=== PATIENT | female | born 2005 | race Caucasian/White ===

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

== ENCOUNTER 2024-05-08 17:00 | Emergency (ER) | payer SELFPAY ==
[2024-05-08 17:30] VITALS: BP 123/70; PULSE 85; RESP 20; TEMP 98.6; BMI 52.2
[2024-05-08] MEDS ORDERED: DEXAMETHASONE SOD PHOSPHATE 10 MG/1 ML VIAL ONE (18:46)
[2024-05-08] MEDS ORDERED: ALBUTEROL SO4 2.5/IPRATROPIUM 0.5 INH SOL 3 ML VIAL.NEB. NEB ONE (18:46)
[2024-05-08] MEDS: ALBUTEROL SO4 2.5/IPRATROPIUM 0.5 INH SOL 3 ML VIAL.NEB. NEB ONE (19:04)
[2024-05-08] MEDS: DEXAMETHASONE SOD PHOSPHATE 10 MG/1 ML VIAL IM ONE (19:04)
== END 2024-05-08 20:18 | disposition home or self-care (01) ==
LOC: JER 17:00
PROC: 3E023GC Introduction of Other Therapeutic Substance into Muscle, Percutaneous Approach (ICD-10-PCS; principal; 2024-05-08)
PROC: 3E0F7GC Introduction of Other Therapeutic Substance into Respiratory Tract, Via Natural or Artificial Opening (ICD-10-PCS; 2024-05-08)
DX: R05.9 Cough, unspecified (principal); R07.89 Other chest pain; R06.02 Shortness of breath; R06.2 Wheezing; J06.9 Acute upper respiratory infection, unspecified; Z20.822 Contact with and (suspected) exposure to COVID-19
CPT/HCPCS: 0241U-QW; 71046-TC-FY; 93005; 93010; 99285-25; J1100

== ENCOUNTER 2024-06-12 09:13 | Emergency (ER) | payer SELFPAY ==
[2024-06-12 09:38] VITALS: BP 119/76; RESP 20; TEMP 98.1; BMI 48.2
[2024-06-12] MEDS ORDERED: ALBUTEROL SO4 2.5/IPRATROPIUM 0.5 INH SOL 3 ML VIAL.NEB. NEB ONE (10:12)
[2024-06-12] MEDS ORDERED: predniSONE 20 MG TABLET (UD) ONE (10:13)
[2024-06-12] MEDS: predniSONE 20 MG TABLET (UD) PO ONE (10:15)
[2024-06-12] MEDS: ALBUTEROL SO4 2.5/IPRATROPIUM 0.5 INH SOL 3 ML VIAL.NEB. NEB ONE (10:50)
[2024-06-12 11:36] VITALS: PULSE 79
[2024-06-12 12:15] LABS: HIV INTERPRETATION NEGATIVE (NEGATIVE)
== END 2024-06-12 12:25 | disposition home or self-care (01) ==
LOC: JER 09:13
PROC: 3E0F7GC Introduction of Other Therapeutic Substance into Respiratory Tract, Via Natural or Artificial Opening (ICD-10-PCS; principal; 2024-06-12)
DX: J45.40 Moderate persistent asthma, uncomplicated (principal); R06.02 Shortness of breath; R07.89 Other chest pain; R05.9 Cough, unspecified; J02.9 Acute pharyngitis, unspecified
CPT/HCPCS: 36415; 71046-TC-FY; 86803; 87389; 93005; 93010; 99285-25

== ENCOUNTER 2024-11-07 12:12 | Emergency (ER) | payer OTHER ==
[2024-11-07 12:20] VITALS: BP 122/89; PULSE 99; RESP 18; TEMP 98.6; BMI 42.5
[2024-11-07] MEDS ORDERED: ACETAMINOPHEN 500 MG TABLET (FP) ONE (12:51)
[2024-11-07] MEDS ORDERED: DEXAMETHASONE SOD PHOSPHATE 10 MG/1 ML VIAL ONE (12:51)
[2024-11-07] MEDS ORDERED: ALBUTEROL SO4 2.5/IPRATROPIUM 0.5 INH SOL 3 ML VIAL.NEB. NEB ONE (12:51)
[2024-11-07] MEDS: DEXAMETHASONE SOD PHOSPHATE 10 MG/1 ML VIAL PO ONE (13:06)
[2024-11-07] MEDS: ACETAMINOPHEN 500 MG TABLET (FP) PO ONE (13:06)
[2024-11-07] MEDS: ALBUTEROL SO4 2.5/IPRATROPIUM 0.5 INH SOL 3 ML VIAL.NEB. NEB ONE (13:06)
[2024-11-07 13:54] LABS: THROAT:GRP A STREP DETECTED (NOTDETECTED)
== END 2024-11-07 14:12 | disposition home or self-care (01) ==
LOC: JERFT 12:12
PROC: 3E0F7GC Introduction of Other Therapeutic Substance into Respiratory Tract, Via Natural or Artificial Opening (ICD-10-PCS; principal; 2024-11-07)
DX: J45.901 Unspecified asthma with (acute) exacerbation (principal); J02.0 Streptococcal pharyngitis; B34.9 Viral infection, unspecified; R07.89 Other chest pain; R05.9 Cough, unspecified
CPT/HCPCS: 0241U-QW; 87651; 99284-25; J1100

== ENCOUNTER 2024-12-14 10:38 | Emergency (ER) | payer OTHER ==
[2024-12-14 10:47] VITALS: BP 121/69; PULSE 92; RESP 20; TEMP 98.3; BMI 49.9
[2024-12-14] MEDS ORDERED: ONDANSETRON 4 MG/2 ML VIAL ONE (12:15)
[2024-12-14] MEDS: SODIUM CHLORIDE 0.9% 500 ML INFUS.BAG IV ONE (12:29)
[2024-12-14] MEDS: ONDANSETRON 4 MG/2 ML VIAL IVPUSH ONE (12:29)
[2024-12-14 12:51] LABS: ABSOLUTE IMMATURE GRANULOCYTES 0.03 x10^3/uL (0.0-0.031); BASOPHILS # 0.04 x10^3/uL (0.01-0.08); EOSINOPHIL % 3.8 % (0.7-5.8); EOSINOPHILS # 0.25 x10^3/uL (0.04-0.36); HEMATOCRIT 37.8 % (34.1-44.9); HEMOGLOBIN 11.5 g/dL (11.2-15.7); MCHC 30.4 g/dl (32.2-35.5); MEAN CELL VOLUME 81.1 fl (79.4-94.8); MEAN PLT VOLUME 10.8 fl (9.4-12.3); MONOCYTE # 0.41 x10^3/uL (0.24-0.86); MONOCYTE % 6.2 % (4.7-12.5); PLATELET COUNT 289 x10^3/uL (182-369); RDW 14.6 % (12.0-16.2)
[2024-12-14 12:55] LABS: EPI CELLS >36 /uL (0-25.1); HYALINE CASTS 0 /uL (0-3.1); PH,URINE 7.5 (5.0-8.0); URINE APPEARANCE CLOUDY; URINE BACTERIA 3231 /uL (0-1359); URINE BILIRUBIN NEGATIVE (NEGATIVE); URINE COLOR YELLOW; URINE GLUCOSE (UA) NEGATIVE (NEGATIVE); URINE KETONE NEGATIVE (NEGATIVE); URINE LEUK ESTERASE NEGATIVE (NEGATIVE); URINE NITRITE NEGATIVE (NEGATIVE); URINE PROTEIN NEGATIVE (NEGATIVE); URINE RBC 6 /uL (0-23.9); URINE UROBILINOGEN 0.2 mg/dL (0.2-1.0); URINE WBC 17 /uL (0-25.8)
[2024-12-14 13:11] LABS: CHLORIDE 104 mmol/L (98-107); SODIUM 124 mmol/L (136-145)
[2024-12-14 13:14] LABS: CALCIUM 8.7 mg/dL (8.5-10.1)
[2024-12-14 13:15] LABS: ALBUMIN 2.8 g/dl (3.4-5.0); BLOOD UREA NITROGEN 9.2 mg/dL (7-18); CO2 28 mmol/L (21-32); GLUCOSE,RANDOM 76 mg/dL (74-106)
[2024-12-14 13:18] LABS: CREATININE 0.6 mg/dL (0.55-1.3)
[2024-12-14 13:20] LABS: TOT PROT 8.9 g/dl (6.4-8.2)
[2024-12-14 13:26] LABS: ANION GAP -8 mmol/L (4-13); POTASSIUM > 10.0 mmol/L (3.5-5.1)
[2024-12-14 15:56] LABS: POTASSIUM 3.6 mmol/L (3.5-5.1)
[2024-12-14 15:58] LABS: ALBUMIN 3.2 g/dl (3.4-5.0); BLOOD UREA NITROGEN 8.4 mg/dL (7-18); CALCIUM 9.1 mg/dL (8.5-10.1)
[2024-12-14 16:01] LABS: CREATININE 0.6 mg/dL (0.55-1.3)
[2024-12-14 16:03] LABS: BILIRUBIN,TOTAL 0.2 mg/dL (0.2-1)
[2024-12-14 16:06] LABS: TOT PROT 6.3 g/dl (6.4-8.2)
== END 2024-12-14 18:10 | disposition home or self-care (01) ==
LOC: JER 10:38
PROC: 3E033GC Introduction of Other Therapeutic Substance into Peripheral Vein, Percutaneous Approach (ICD-10-PCS; principal; 2024-12-14)
DX: O20.9 Hemorrhage in early pregnancy, unspecified (principal); O26.891 Other specified pregnancy related conditions, first trimester; R10.30 Lower abdominal pain, unspecified; R11.0 Nausea; R10.2 Pelvic and perineal pain; Z3A.00 Weeks of gestation of pregnancy not specified
CPT/HCPCS: 36415; 76817-TC; 80053; 81003; 84702; 85025; 87086; 99285-25

== ENCOUNTER 2024-12-31 22:18 | Emergency (ER) | payer OTHER ==
[2024-12-31 22:36] VITALS: BP 123/81; PULSE 107; RESP 20; TEMP 98.8; BMI 49.9
[2024-12-31] MEDS ORDERED: AMOXICILLIN 250 MG CAPSULE ONE (23:08)
[2024-12-31] MEDS ORDERED: IBUPROFEN 600 MG TABLET (FP) PO ONE (23:08)
[2024-12-31] MEDS: AMOXICILLIN 500 MG CAPSULE (FP) PO ONE (23:11)
[2024-12-31] MEDS: IBUPROFEN 600 MG TABLET (FP) PO ONE (23:11)
== END 2024-12-31 23:00 | disposition home or self-care (01) ==
LOC: JER 22:18
DX: J02.9 Acute pharyngitis, unspecified (principal); R50.9 Fever, unspecified
CPT/HCPCS: 99283-25